=== PATIENT | female | born 1990 | race Caucasian/White ===

== ENCOUNTER → 2022-04-04 | Outpatient (CLI) | payer OTHER | LOC: M PLALAB 14:33 | PROVIDERS: ATTEND Obstetrics & Gynecology | DX: O30.032 Twin pregnancy, monochorionic/diamniotic, second trimester (principal); Z3A.00 Weeks of gestation of pregnancy not specified ==

== ENCOUNTER → 2022-06-15 | Outpatient (CLI) | payer OTHER ==
[2022-06-15 14:02] LABS: HEMATOCRIT 33.1 % (36.0-47.0); HEMOGLOBIN 9.9 g/dl (12.0-15.5); MEAN CORPUSCULAR HEMOGLOBIN 25.8 pg (27.0-33.0); MEAN CORPUSCULAR HGB CONC 29.9 g/dl (32.0-36.5); MEAN CORPUSCULAR VOLUME 86.2 fl (80.0-96.0); PLATELET COUNT, AUTOMATED 200 10^3/uL (150-450); RED BLOOD COUNT 3.84 10^6/uL (4.00-5.40); WHITE BLOOD COUNT 7.1 10^3/uL (4.0-10.0)
== END ==
LOC: M PLALAB 09:58
PROVIDERS: ATTEND Obstetrics & Gynecology
DX: O30.032 Twin pregnancy, monochorionic/diamniotic, second trimester (principal); Z3A.00 Weeks of gestation of pregnancy not specified

== ENCOUNTER → 2023-07-17 | Outpatient (REF) | payer OTHER ==
[~2023-07-17] MED LIST: CLIN-250; KETO10TAB PO
== END ==
LOC: M PLALAB 16:43
PROVIDERS: ATTEND Obstetrics & Gynecology
DX: Z12.4 Encounter for screening for malignant neoplasm of cervix (principal)
CPT/HCPCS: 87624; G0123; G0463

== ENCOUNTER 2024-01-10 11:28 | Emergency (ER) | payer OTHER ==
[~2024-01-10] VITALS: Ht 165.1 cm; Wt 73.6 kg
[2024-01-10] MEDS ORDERED: PREN1CHW4 PO (11:36)
[2024-01-10 12:06] LABS: BASO % 0.8 % (0.0-1.0); EOS # 0.1 10^3/uL (0.0-0.5); HEMOGLOBIN 11.6 g/dl (12.0-15.5); LYMPH # 1.2 10^3/uL (1.5-5.0); LYMPH % 23.6 % (24.0-44.0); MEAN CORPUSCULAR HEMOGLOBIN 23.9 pg (27.0-33.0); MEAN CORPUSCULAR HGB CONC 30.5 g/dl (32.0-36.5); MEAN CORPUSCULAR VOLUME 78.2 fl (80.0-96.0); MONO # 0.4 10^3/uL (0.0-0.8); MONO % 7.2 % (2.0-8.0); NEUTROPHILS # 3.3 10^3/uL (1.5-8.5); NEUTROPHILS % 67.2 % (36.0-66.0); PLATELET COUNT, AUTOMATED 311 10^3/uL (150-450); RED BLOOD COUNT 4.86 10^6/uL (4.00-5.40); WHITE BLOOD COUNT 4.9 10^3/uL (4.0-10.0)
[2024-01-10 12:38] LABS: BLOOD UREA NITROGEN 7 MG/DL (9-23); CALCIUM LEVEL 8.4 MG/DL (8.5-10.1); CARBON DIOXIDE LEVEL 26 MMOL/L (20-31); CHLORIDE LEVEL 106 MMOL/L (98-107); CREATININE FOR GFR 0.48 MG/DL (0.55-1.30); GLOMERULAR FILTRATION RATE > 60.0 (>60); GLUCOSE, FASTING 91 MG/DL (60-100); SODIUM LEVEL 138 MMOL/L (136-145)
[2024-01-10 12:55] LABS: HCG, SERUM QUANTITATIVE 2377.8 MIU/ML (<4.2)
[2024-01-10 15:43] VITALS: BP 132/89; TEMP 96.8; O2SAT 100
== END 2024-01-10 15:50 | disposition home or self-care (01) ==
LOC: M ED 11:28
DX: R10.2 Pelvic and perineal pain (principal); O26.859 Spotting complicating pregnancy, unspecified trimester; Z3A.01 Less than 8 weeks gestation of pregnancy; Z88.0 Allergy status to penicillin; Z79.810 Long term (current) use of selective estrogen receptor modulators (SERMs)

== ENCOUNTER → 2024-05-20 | Outpatient (CLI) | payer OTHER ==
[~2024-05-20] MED LIST changes: +PREN1CHW4 PO
[2024-05-20 19:49] LABS: FOLLICLE STIMULATING HORMONE 8.9 mIU/ML; LUTEINIZING HORMONE 2.4 mIU/ML; PROLACTIN 4.69 NG/ML
[2024-05-20 19:50] LABS: ESTRADIOL 35.3 PG/ML; PROGESTERONE 0.31 NG/ML
[2024-05-20 19:58] LABS: HEMOGLOBIN A1c 4.7 % (4.0-6.0)
== END ==
LOC: M PLALAB 14:27
PROVIDERS: ATTEND Nurse Practitioner Family
DX: Z31.69 Encounter for other general counseling and advice on procreation (principal); R10.2 Pelvic and perineal pain

== ENCOUNTER → 2024-07-21 | Outpatient (CLI) | payer OTHER | LOC: M WHC 11:38 | PROVIDERS: ATTEND Nurse Practitioner Family | DX: R10.2 Pelvic and perineal pain (principal) ==

== ENCOUNTER → 2024-10-23 | Outpatient (CLI) | payer OTHER | LOC: M PLALAB 13:46 | PROVIDERS: ATTEND Obstetrics & Gynecology | DX: N92.6 Irregular menstruation, unspecified (principal) ==

== ENCOUNTER → 2024-12-12 | Outpatient (CLI) | payer OTHER ==
[2024-12-12 13:32] LABS: HEMATOCRIT 37.9 % (36.0-47.0); HEMOGLOBIN 12.3 g/dl (12.0-15.5); MEAN CORPUSCULAR HEMOGLOBIN 26.7 pg (27.0-33.0); MEAN CORPUSCULAR HGB CONC 32.5 g/dl (32.0-36.5); MEAN CORPUSCULAR VOLUME 82.2 fl (80.0-96.0); PLATELET COUNT, AUTOMATED 228 10^3/uL (150-450); RED BLOOD COUNT 4.61 10^6/uL (4.00-5.40); WHITE BLOOD COUNT 5.5 10^3/uL (4.0-10.0)
[2024-12-12 14:31] LABS: HIV 1&2 SCREEN NEGATIVE (NEGATIVE)
[2024-12-12 14:40] LABS: HEPATITIS C VIRUS ABY INDEX 0.05 INDEX (<0.8)
[2024-12-12 15:41] LABS: Trichomonas vaginalis (AMP) NOT DETECTED (NEGATIVE)
[2024-12-12 16:04] LABS: GC DNA AMPLIFICATION NEGATIVE (NEGATIVE)
== END ==
LOC: M PLALAB 12:01
PROVIDERS: ATTEND Nurse Practitioner Family
DX: Z34.81 Encounter for supervision of other normal pregnancy, first trimester (principal)

== ENCOUNTER → 2025-04-02 | Outpatient (CLI) | payer OTHER | LOC: M WHC 07:17 | PROVIDERS: ATTEND Nurse Practitioner Family | DX: Z34.82 Encounter for supervision of other normal pregnancy, second trimester (principal) ==

== ENCOUNTER → 2025-04-02 | Outpatient (CLI) | payer OTHER ==
[2025-04-02 10:12] LABS: PLATELET COUNT, AUTOMATED 171 10^3/uL (150-450)
[2025-04-02 10:58] LABS: GLUCOSE CHALLENGE TEST 1 HOUR 91 MG/DL (LESS THAN 140)
[2025-04-02 11:21] LABS: Trichomonas vaginalis (AMP) NOT DETECTED (NEGATIVE)
[2025-04-02 11:25] LABS: HEPATITIS C VIRUS ABY INDEX 0.09 INDEX (<0.8); HIV 1&2 SCREEN NEGATIVE (NEGATIVE)
[2025-04-02 11:44] LABS: GC DNA AMPLIFICATION NEGATIVE (NEGATIVE)
== END ==
LOC: M PLALAB 08:09
PROVIDERS: ATTEND Nurse Practitioner Family
DX: Z34.82 Encounter for supervision of other normal pregnancy, second trimester (principal)

== ENCOUNTER 2025-05-07 11:46 | Outpatient (CLI) | payer OTHER ==
[2025-05-07] VITALS (34 sets, daily range): BP systolic 120–185; BP diastolic 72–113
[~2025-05-07] VITALS: Ht 165.1 cm; Wt 83.4 kg
[2025-05-07] MEDS ORDERED: ACET-897 PO (12:08)
[2025-05-07] MEDS ORDERED: OMEP40CA4 PO (12:08)
[2025-05-07 13:05] LABS: TOTAL PROTEIN,RANDOM URINE 1331.5 MG/DL (0.0-14.0)
[2025-05-07 13:07] LABS: LDH LACTATE DEHYDROGENASE 272 U/L (120-246)
[2025-05-07 13:08] LABS: ALT/SGPT 13 U/L (7.0-40); AST/SGOT 20 U/L (<34); CREATININE FOR GFR 0.57 MG/DL (0.55-1.30); GLOMERULAR FILTRATION RATE > 90.0 (>60)
[2025-05-07] MEDS: BETAMETHASONE SOLUSPAN 6 MG/ML 5 ML VIAL IM SCH (15:19)
[2025-05-07] MEDS: MORPHINE 4 MG/ML 1 ML VIAL IV PRN (17:20)
[2025-05-07] MEDS: LABETALOL 100 MG TAB PO SCH (19:49)
[2025-05-08 01:49] VITALS: BP 139/91
[2025-05-08 03:49] VITALS: BP 123/73
[2025-05-08 05:50] VITALS: BP 162/106
[2025-05-08 06:05] VITALS: BP 164/100
[2025-05-08] MEDS: ACETAMINOPHEN 500 MG TAB PO PRN (08:54)
[2025-05-08] MEDS: METOCLOPRAMIDE 10 MG TAB PO SCH (08:54)
[2025-05-08] MEDS ORDERED: OMEP-173 PO (17:48)
[2025-05-08] MEDS: OMEPRAZOLE 20MG CAP PO SCH (18:44)
[2025-05-08 20:02] VITALS: BP 132/83
[2025-05-09] VITALS (16 sets, daily range): BP systolic 111–165; BP diastolic 67–100
[2025-05-09] MEDS: LABETALOL 100 MG TAB PO SCH (09:04)
[2025-05-09] MEDS: METOCLOPRAMIDE 10 MG TAB PO PRN (09:04)
[2025-05-09] MEDS: LABETALOL 100 MG/20 ML VIAL IV STA ×2 (09:22→09:43)
[2025-05-09 14:59] LABS: PLATELET COUNT, AUTOMATED 188 10^3/uL (150-450)
[2025-05-09 15:26] LABS: LDH LACTATE DEHYDROGENASE 270 U/L (120-246)
[2025-05-09 15:27] LABS: ALT/SGPT 21 U/L (7.0-40); AST/SGOT 30 U/L (<34); CALCIUM LEVEL 7.9 MG/DL (8.5-10.1); CARBON DIOXIDE LEVEL 20 MMOL/L (20-31); CHLORIDE LEVEL 107 MMOL/L (98-107); CREATININE FOR GFR 0.60 MG/DL (0.55-1.30); GLOMERULAR FILTRATION RATE > 90.0 (>60); POTASSIUM SERUM 4.1 MMOL/L (3.5-5.1); SODIUM LEVEL 141 MMOL/L (136-145)
[2025-05-09] MEDS: MAG Sulf (L&D) 4 GM/100 ML 4 GM in IV 1 EA IV ONE (17:42)
[2025-05-09] MEDS: MAG Sulf (OBGYN) 20GM/500ML 20,000 MG in IV 1 EA IV SCH (17:42)
[2025-05-09] MEDS: LR 1,000 ML IV SCH (17:59)
== END 2025-05-09 20:29 | disposition short-term general hospital (02) ==
LOC: M LDO 11:46
PROVIDERS: ATTEND Obstetrics & Gynecology
DX: O14.13 Severe pre-eclampsia, third trimester (principal); O36.5930 Maternal care for other known or suspected poor fetal growth, third trimester, not applicable or unspecified; O99.013 Anemia complicating pregnancy, third trimester; D50.9 Iron deficiency anemia, unspecified; O34.211 Maternal care for low transverse scar from previous cesarean delivery; O99.343 Other mental disorders complicating pregnancy, third trimester; F41.8 Other specified anxiety disorders; O26.23 Pregnancy care for patient with recurrent pregnancy loss, third trimester; Z3A.31 31 weeks gestation of pregnancy; O28.5 Abnormal chromosomal and genetic finding on antenatal screening of mother; O99.353 Diseases of the nervous system complicating pregnancy, third trimester; G43.109 Migraine with aura, not intractable, without status migrainosus; O99.413 Diseases of the circulatory system complicating pregnancy, third trimester; I47.19 Other supraventricular tachycardia
CPT/HCPCS: 36415; 59025; 76815; 76816; 76819; 76820; 80053; 82247; 82570; 83615; 84156; 84450; 84460; 84550; 85027; 96372; 96374; 96375; G0463; J0702; J1920; J2550; J3475